=== PATIENT | female | born 1955 | race Caucasian/White ===

== ENCOUNTER 2018-11-08 22:57 | Emergency (ER) | payer SELFPAY ==
[~2018-11-08] VITALS: Ht 160 cm; Wt 94.0 kg
[~2018-11-08 22:57] MED LIST: ATOR20TA38 PO; CETI10CA PO; DILT120T PO; HYDR12.58 PO; LOSA50TA14 PO
[2018-11-08 23:08] VITALS: PULSE 83; RESP 16; Ht 160 cm; Wt 94.0 kg
[2018-11-09 02:02] VITALS: BP 145/75
== END 2018-11-09 02:03 | disposition home or self-care (01) ==
LOC: FTE 22:57 → EDBD 22:57 → FTE 11-09 02:03
DX: Z76.0 Encounter for issue of repeat prescription (principal); I10 Essential (primary) hypertension
CPT/HCPCS: 99281